=== PATIENT | female | born 1985 | race Caucasian/White ===

== ENCOUNTER 2020-04-18 08:42 | Outpatient (REF) | payer MEDICARE, MEDICAID, SELFPAY | END 2020-04-18 08:43 | disposition home or self-care (01) | LOC: HO.LAB 08:42 | PROVIDERS: Visit Provider Internal Medicine | DX: Z20.828 Contact with and (suspected) exposure to other viral communicable diseases (principal) | CPT/HCPCS: C9803; U0003 ==

== ENCOUNTER 2021-03-05 09:37 | Emergency (ER) | payer MEDICARE, SELFPAY ==
[2021-03-05 11:11] VITALS: BP 136/65; PULSE 65; RESP 18; TEMP 36.6; O2SAT 97; BMI 27.3
--- NOTE | 2021-03-05 11:31 | ED.URI ---
HPI - URI/Sore Throat General Chief Complaint: Upper Respiratory Symptoms Stated Complaint: Sinus infection Time Seen by Provider: 03/05/21 11:31 Source: patient Mode of arrival: ambulatory Limitations: no limitations History of Present Illness HPI Narrative: 36 yo female with a history of recurrent sinus infections presents to the ER with signs and symptoms of a sinus infection for the last 2 weeks. She reports every fall she gets a sinus infection. She a little over 2 weeks ago she started feeling unwell and had a cold. This progressed and turned into frontal headache and sinus pressure. She started having [place] nasal discharge and congestion about 1 week ago. She has throbbing headaches because of the pressure. She has had no fever, chills, shortness of breath, cough, nausea, vomiting, abdominal pain. She is with her young 2-year-old son who has similar symptoms but only for 1 week and to a lesser degree. She is fully vaccinated for COVID-19. MD elicited complaint: nasal congestion and sinus pain Pertinent past history: sinusitis Onset (ago): week(s) (2) Consistency: progressively worsening Severity: moderate Description of mucous: green Able to tolerate fluids by mouth: Yes Exacerbating factors: changing head position Relieving factors: nothing Context: sick contacts Associated symptoms: rhinorrhea and nasal congestion Treatments prior to arrival: none Related Data Previous Rx's Medication Instructions Recorded amoxicillin 875 mg-potassium 1 tab PO BID #20 tab 03/05/21 clavulanate 125 mg tablet (Augmentin) cetirizine 10 mg tablet (Zyrtec) 10 mg PO DAILY #14 tab 03/05/21 fluticasone propionate 50 1 spray INTRANASAL BID #16 g 03/05/21 mcg/actuation nasal spray,suspension (Flonase Allergy Relief) Allergies Allergy/AdvReac Type Severity Reaction Status Date / Time nifedipine [NIFEDIPINE] Allergy Unknown ITCHING Unverified 01/05/20 18:13 Review of Systems Review of Systems: Constitutional: No Fever, No Chills ENT/Mouth: No sore throat, + Rhinorrhea, No Swallowing Difficulty, +sinus pressure Eyes: No Eye Pain, No Swelling, No Redness Cardiovascular: No Chest Pain, No SOB Respiratory: No Cough, No Sputum, No Wheezing, No dyspnea Gastrointestinal: No Nausea, No Vomiting, No Diarrhea, No abdominal Pain Musculoskeletal: No joint pain, No Myalgias Skin: No Skin Lesions, No rash Neuro: No Weakness, No Numbness, No Dizziness, + Headache Heme/Lymph:No Lymphadenopathy PMFSH Social History Social History Advance Directives: No Advance Directives Information Provided: No Physical Exam Vital Signs: Vital Signs: Last Vital Signs Temp 97.8 F 03/05/21 11:11 Pulse 65 03/05/21 11:11 Resp 18 03/05/21 11:11 BP 136/65 03/05/21 11:11 Pulse Ox 97 03/05/21 11:11 Body Mass Index 27.3 Appearance: Alert. Oriented X3. No acute distress. Eyes: Pupils equal, round and reactive to light. ENT: Bilateral external auditory canals partially obstructed with cerumen, visualized TM is normal in appearance. Nasal turbinates are erythematous and swollen bilaterally. Septum midline. Posterior oropharynx with mild generalized erythema, no tonsillar exudate or swelling. Handling secretions normally. Normal voice Neck: Normal inspection. Neck supple. CVS: Normal heart rate and rhythm. Pulses normal. Respiratory: No respiratory distress. Breath sounds normal. Skin: Skin warm and dry. Normal skin color. Normal skin turgor. No rashes. Extremities: Normal inspection, normal range of motion. Neuro: Oriented X 3. Grossly normal, nonfocal. Course Course Course Narrative: 36-year-old female with a history of sinus infections presents to the ER with signs and symptoms of a frontal sinusitis. Symptoms have been present for 2 weeks. She is nontoxic appearing with normal vital signs on arrival. Will test for COVID, flu, RSV. Reevaluation(s) Reevaluation #1: Viral PCR is negative. Will plan to treat for acute sinusitis with 10 day course of Augmentin, intranasal steroids, and initiation allergy medication. She reports these happen every fall and may be exacerbated by seasonal allergies. You follow-up with her doctor for further management. Stable for discharge home. MDM - URI/Sore Throat Lab Data Labs: Lab Results 03/05/21 Range/Units 11:17 Influenza Type A (PCR) NEGATIVE (Negative) Influenza Type B (PCR) NEGATIVE (Negative) RSV RNA Qual (PCR) NEGATIVE (Negative) SARS-CoV-2 RNA (RT-PCR) NEGATIVE (Negative) Discharge Plan Discharge Clinical Impression: Sinusitis Qualifiers: Sinusitis location: frontal Chronicity: acute Recurrence: recurrent Qualified Code(s): J01.11 - Acute recurrent frontal sinusitis Patient Disposition: Home, Self-Care Instructions: Sinusitis (ED) Additional Instructions: You tested negative for COVID-19, influenza, and RSV. Take the prescribed antibiotic as directed for 10 full days. Use the prescribed nasal spray 2 times a day. This will help with inflammation and postnasal drip. Take [id number] cold and flu medications as needed for your other symptoms. Recommend nasal rinse and irrigation with an [id number] Neti pot. Use sterile water. Rest and drink plenty of fluids. Follow-up with your doctor as needed. Prescriptions: New amoxicillin-pot clavulanate [Augmentin] 875-125 mg tablet 1 tab PO BID Qty: 20 RF: 0 fluticasone propionate [Flonase Allergy Relief] 50 mcg/actuation spray,suspension 1 spray intranasal BID Qty: 16 RF: 0 cetirizine [Zyrtec] 10 mg tablet 10 mg PO DAILY Qty: 14 RF: 0
[2021-03-05 12:24] LABS: Influenza A PCR NEGATIVE (Negative); Influenza B PCR NEGATIVE (Negative); Resp Syncy Virus RNA Qual PCR NEGATIVE (Negative); SARS COV2 PCR INHOUSE NEGATIVE (Negative)
== END 2021-03-05 13:02 | disposition home or self-care (01) ==
PROVIDERS: Emergency Provider Emergency Medicine Emergency Medical Services
DX: J01.11 Acute recurrent frontal sinusitis (principal); Z20.822 Contact with and (suspected) exposure to COVID-19; Z79.899 Other long term (current) drug therapy
CPT/HCPCS: 0241U; 36415; 99283

== ENCOUNTER 2021-05-15 09:12 | Emergency (ER) | payer MEDICARE, SELFPAY ==
--- NOTE | ~2021-05-15 | XR_ITS ---
EXAMINATION: XR CHEST CLINICAL INFORMATION: Chest pain and cough COMPARISON: April 28, 2011 TECHNIQUE: 2 views of the chest were obtained. FINDINGS: No significant abnormality is noted involving the heart, lungs, mediastinum, bony thorax or soft tissues. XR/XR chest 2V IMPRESSION: No acute disease
[2021-05-15 09:17] VITALS: BP 152/77; PULSE 70; RESP 18; TEMP 36.8; O2SAT 98; BMI 27.3
--- NOTE | 2021-05-15 09:21 | ECG_ITS ---
Test Reason : chest pain Blood Pressure : / mmHG Vent. Rate : 076 BPM Atrial Rate : 076 BPM P-R Int : 144 ms QRS Dur : 076 ms QT Int : 396 ms P-R-T Axes : 055 063 030 degrees QTc Int : 445 ms Normal sinus rhythm Normal ECG No previous ECGs available Referred By: Generic ED Physician Electronically Signed By:TED GREEN MD
--- NOTE | 2021-05-15 10:14 | ED_ITS ---
HPI - Chest Pain General Chief Complaint: Chest Pain Stated Complaint: chest pain Time Seen by Provider: 05/15/21 10:07 Source: patient Limitations: no limitations History of Present Illness HPI narrative: This is a 36-year-old female who had COVID a few weeks ago. She has had an intermittent cough and also pain in the middle of her chest which is sharp and comes and goes. Patient denies any shortness of breath. She denies any recent fever. She states the cough is dry. She denies any pain or swelling in her extremities. She denies any nausea or sweats or palpitations. She is on Depo- Provera shot is due for her next shot today. She states she just wants to make sure she does not have pneumonia. Related Data Previous Rx's Medication Instructions Recorded amoxicillin 875 mg-potassium 1 tab PO BID #20 tab 03/05/21 clavulanate 125 mg tablet (Augmentin) cetirizine 10 mg tablet (Zyrtec) 10 mg PO DAILY #14 tab 03/05/21 fluticasone propionate 50 1 spray INTRANASAL BID #16 g 03/05/21 mcg/actuation nasal spray,suspension (Flonase Allergy Relief) Allergies Allergy/AdvReac Type Severity Reaction Status Date / Time nifedipine [NIFEDIPINE] Allergy Unknown ITCHING Verified 05/15/21 09:27 Review of Systems Verdana 4l Constitutional: Verdana 4d Constitutional: Verdana 4d Verdana 4d Reports as per HPI, Denies excessive sweating and Denies fever(s) Verdana 4l Eyes: Verdana 4d Verdana 4d Eyes: Verdana 4d Reports no additional eye complaints Verdana 4l ENT: Verdana 4d Reports system reviewed and no additional complaints, except as documented Verdana 4l Cardiovascular: Verdana 4d Cardiovascular: Verdana 4d Verdana 4d Reports as per HPI, Reports chest pain and Denies dyspnea Verdana 4l Respiratory: Verdana 4d Verdana 4d Respiratory: Verdana 4d Reports cough and Denies dyspnea Verdana 4l Gastrointestinal: Verdana 4d Gastrointestinal: Verdana 4d Verdana 4d Denies nausea Verdana 4l Neurologic: Verdana 4d Denies Sensory deficit (Neuro) Verdana 4l Endocrine: Verdana 4d Verdana 4d Endocrine: Verdana 4d Denies excessive sweating PMFSH Past Medical History Medical History (Updated 05/15/21 @ 10:40 by Alonso Bey MD) No known health problems No known health problems Social History Social History Advance Directives: No Advance Directives Information Provided: Yes Patient : No Physical Exam Verdana 4l Vital Signs: Verdana 4d Verdana 4d Vital Signs: Verdana 4d Verdana 4Bd Last Vital Signs Verdana 4d 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 New 4d 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 New 4d Temp 98.2 F 05/15/21 09:17 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 New 4d Pulse 70 05/15/21 09:17 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 New 4d Resp 18 05/15/21 09:17 BP 152/77 H 05/15/21 09:17 Pulse Ox 98 05/15/21 09:17 BMI result Body Mass Index 27.3 Const: General: cooperative, no acute distress and alert Orientation/consciousness: patient oriented x3 HENMT: Head: Yes normal to inspection Eyes: General: appearance normal, both eyes and all related structures Eyelids: Yes eyelids normal Conjunctivae: conjunctivae normal Pupils: Equal, round and reactive pupils present Neck: Neck: Yes normal visual inspection and Yes supple Chest: Other: No chest wall tenderness Chest palpation & inspection: normal inspection of the chest Resp: Effort & Inspection: normal respiratory effort Auscultation: clear to auscultation bilaterally Cardio: Rate: regular rate Rhythm: regular rhythm Heart sounds: S1 normal heart sound present, S2 normal heart sound present, no gallops, no murmurs and no rubs GI: Palpation (GI): Soft to palpation, nontender and Other GI palpation findings present (Non-distended) Auscultation: normal bowel sounds Skin: General skin exam: no rashes or lesions noted Neuro: General: patient oriented x3, no focal motor deficits and CN's II-XI intact bilaterally Cranial nerves: Yes Equal, round and reactive pupils present Cognition (Neuro): normal cognition Motor exam (neuro): 5/5 motor strength present throughout Sensory Exam: No Sensory deficit (Neuro) Extrem: General: Yes normal to inspection and Yes no pedal edema Psych: Appearance: grossly normal Affect: normal affect MDM - Chest Pain MDM Narrative Medical decision making narrative: Patient with sharp intermittent anterior chest pain localized in her sternal area. Patient recently had COVID and has had some dry cough. Patient appears well clinically, has clear lungs. EKG normal. Chest x-ray two views normal. Patient likely has chest wall pain secondary to cough. Imaging Data Chest x-ray: My impression: Checks x-ray two views normal, no cardiomegaly, no pulmonary infiltrate or pleural effusion ECG Data ECG #1: ECG interpretation date: 05/15/21 ECG interpretation time: 10:20 Interpretation: Sinus rhythm with a rate of 76. No ST elevation depression. Normal QRS axis. No ectopy. Normal EKG. Discharge Plan Discharge Clinical Impression: Acute chest wall pain Patient Disposition: Home, Self-Care Instructions: Chest Wall Pain (ED) Additional Instructions: Use ibuprofen for pain. He can also use an [id number] cough medicine such as Robitussin DM. Your symptoms should gradually receded as her cough improves. Your EKG and chest x-ray were normal. Prescriptions: No Action amoxicillin-pot clavulanate [Augmentin] 875-125 mg tablet 1 tab PO BID Qty: 20 0RF fluticasone propionate [Flonase Allergy Relief] 50 mcg/actuation spray,suspension 1 spray intranasal BID Qty: 16 0RF Rx Instructions: administer into each nostril cetirizine [Zyrtec] 10 mg tablet 10 mg PO DAILY Qty: 14 0RF
[2021-05-15 10:56] VITALS: BP 115/78; PULSE 53; RESP 13; TEMP 36.6; O2SAT 96
== END 2021-05-15 11:08 | disposition home or self-care (01) ==
PROVIDERS: Emergency Provider Emergency Medicine
DX: R07.89 Other chest pain (principal); R05.9 Cough, unspecified; Z86.16 Personal history of COVID-19
CPT/HCPCS: 71046; 93005; 99283; 99284

== ENCOUNTER 2023-04-03 02:09 | Emergency (ER) | payer MEDICARE, SELFPAY ==
[2023-04-03 02:12] VITALS: BP 167/88; PULSE 70; RESP 18; TEMP 36.8; O2SAT 97; BMI 29.6
--- NOTE | 2023-04-03 02:27 | ED_ITS ---
HPI - Dental/Oral General Chief complaint: Dental/Oral Stated complaint: toothache Time Seen by Provider: 04/03/23 02:23 Source: patient Mode of arrival: ambulatory Limitations: no limitations History of Present Illness HPI Narrative: Patient comes to emergency room complaining of 1 day of dental pain. Patient states that she has had issues with her left-sided mandible for several months. Patient was supposed to get her tooth pulled out but could not follow up with her dentist. Today, patient started having and swelling on the left mandibular side. Patient denies trouble swallowing, no chest pain or shortness of breath, no fever chills. Teeth map: 2 1. Related Data Home Medications Medication Instructions Recorded Confirmed medroxyprogesterone 150 mg/mL mg IM 06/10/21 intramuscular suspension Previous Rx's Medication Instructions Recorded phenazopyridine 200 mg tablet 200 mg PO TID 3 days #9 tabs 06/10/21 (Pyridium) sulfamethoxazole 800 1 tab PO BID 5 days #10 tabs 06/10/21 mg-trimethoprim 160 mg tablet (Bactrim DS) ibuprofen 600 mg tablet 600 mg PO TID PRN fever or pain 04/03/23 #20 tabs penicillin V potassium 500 mg 500 mg PO TID 10 days #30 tabs 04/03/23 tablet Allergies Allergy/AdvReac Type Severity Reaction Status Date / Time nifedipine [NIFEDIPINE] Allergy Unknown ITCHING Verified 04/03/23 02:12 Review of Systems 2 Review of Systems: Constitutional : No Weight loss, No Fever, No Chills, No Night Sweats, No Fatigue, No Malaise ENT/Mouth : Complaining of dental pain left mandible, No Hearing loss, No Ear Pain, No Nasal Congestion, No Sinus Pain, No Hoarseness, No sore throat, No Rhinorrhea, No Swallowing Difficulty Eyes: No Eye Pain, No Swelling, No Redness, No Foreign Body, No Discharge, No Vision Changes Cardiovascular : No Chest Pain, No SOB, No Dyspnea on Exertion, No Orthopnea, No Edema, No Palpitations Respiratory : No Cough, No Sputum, No Wheezing, No Smoke Exposure, No Dyspnea Gastrointestinal : No Nausea, No Vomiting, No Diarrhea, No Constipation, No abdominal Pain, No Hematochezia, No Melena Genitourinary : no irregular bleeding, No Dysuria, No Urinary Frequency, No Hematuria, No Urinary Incontinence, No Urgency, No Flank Pain, No Urinary Flow Changes, No Hesitancy Musculoskeletal : No joint pain, No Myalgias, No Joint Swelling Skin : No Skin Lesions, No rash Neuro : No Weakness, No Numbness, No Paresthesias, No Loss of Consciousness, No Dizziness, No Headache Psych : No Anxiety/Panic, No Depression, No SI/HI/AH/VH, No Social Issues, Heme/Lymph: No Bruising, No Bleeding,No Lymphadenopathy Endocrine : No Polyuria, No Polydipsia, No Temperature Intolerance [facility] Past Medical History Medical History No known health problems No known health problems Social History Social History Smoked in Last 30 Days: No Use of substances other than those prescribed or required for medical reasons: No Patient : No Physical Exam 2 Vital Signs: Vital Signs: Last Vital Signs Temp 98.2 F 04/03/23 02:12 Pulse 70 04/03/23 02:12 Resp 18 04/03/23 02:12 BP 167/88 H 04/03/23 02:12 Pulse Ox 97 04/03/23 02:12 O2 Del Method Room Air 04/03/23 02:12 BMI result Body Mass Index 29.6 Const: Other: Appearance: Alert. Oriented X3. No acute distress. Eyes: Pupils equal, round and reactive to light. ENT: Pharynx normal. Cracked tooth left side mandible, no visualized abscess is the could possibly be drained Neck: Normal inspection. Neck supple. No lymph nodes noted. No crepitus CVS: Normal heart rate and rhythm. Pulses normal. Normal S1 and S2 Respiratory: No respiratory distress. Breath sounds normal. No Wheezing. No rales Abdomen: Soft and nontender. No rigidity. No distention. Skin: Skin warm and dry. Normal skin color. Normal skin turgor. Extremities: No lower extremity edema. No Lacerations. No Rash Neuro: Oriented X 3. No motor deficit. No sensory deficit. Moving all extremities. No slurred speech. CN 2 through 12 grossly intact Psych: calm, cooperative, normal affect Medical Decision Making Medical Decision Making MDM Narrative: -patient will follow-up with her dentist -patient given ibuprofen and penicillin in the ED. Patient respectfully declined IM medication/Toradol Differential Diagnosis Differential Diagnoses: The differential diagnosis associated with the presentation includes (Dental pain, dental abscess, caries) Discharge Plan Discharge Clinical Impression: Toothache Patient Disposition: Home, Self-Care Instructions: Toothache (ED) Additional Instructions: Please follow-up with your primary care physician tomorrow. If you have any worsening or new symptoms, please return to the emergency room or call 911 Prescriptions: New penicillin V potassium 500 mg tablet 500 mg PO TID 10 Days Qty: 30 0RF ibuprofen 600 mg tablet 600 mg PO TID PRN (Reason: fever or pain) Qty: 20 0RF No Action medroxyprogesterone 150 mg/mL suspension IM sulfamethoxazole-trimethoprim [Bactrim DS] 800-160 mg tablet 1 tab PO BID 5 Days Qty: 10 0RF phenazopyridine [Pyridium] 200 mg tablet 200 mg PO TID 3 Days Qty: 9 0RF
[2023-04-03] MEDS: Penicillin V Potassium 250 MG TABLET 500 MG PO (02:45)
[2023-04-03] MEDS: Ibuprofen 600 MG TABLET PO (02:45)
== END 2023-04-03 02:52 | disposition home or self-care (01) ==
LOC: HO.ED 02:47
PROVIDERS: Emergency Provider Emergency Medicine
DX: K08.89 Other specified disorders of teeth and supporting structures (principal)
CPT/HCPCS: 99283; 99284